=== PATIENT | male | born 1995 | race Caucasian/White ===

== ENCOUNTER 2019-08-28 12:51 | Emergency (ER) | payer BC, SELFPAY ==
[2019-08-28 13:22] VITALS: BP 148/67; PULSE 85; RESP 98; TEMP 36.9; O2SAT 14
--- NOTE | 2019-08-28 13:44 | ED.URI ---
HPI - URI/Sore Throat General Chief Complaint: Upper Respiratory Infection Stated Complaint: Plurisey?? Time Seen by Provider: 08/28/19 13:46 Source: patient and RN notes reviewed Mode of arrival: ambulatory Limitations: no limitations History of Present Illness HPI Narrative: 24-year-old male presents with concern for bilateral soreness to his anterior chest when he deep breathes. He denies shortness of breath, cough, fever, body aches, injury, trauma. Reports history of pleurisy. Reports his work requires a note with everything going for him to return. MD elicited complaint: other (Chest wall pain) Related Data Home Medications Medication Instructions Recorded Confirmed No Home Medications 08/28/19 08/28/19 Allergies Allergy/AdvReac Type Severity Reaction Status Date / Time No Known Allergies Allergy Verified 08/28/19 13:28 Review of Systems Review of Systems: Narrative: CONSTITUTIONAL: Denies malaise, chills, sweats, or fever. EYES: Denies visual changes, redness, or discharge. ENT: Denies rhinorrhea, congestion, sinus pain, otalgia or sore throat. CARDIOVASCULAR: Denies chest pain, palpitations, or edema. RESPIRATORY: Denies cough or dyspnea. Reports chest wall pain with deep breathing GASTROINTESTINAL: Denies abdominal pain, nausea, vomiting, diarrhea SKIN: Denies rash or itching. MUSCULOSKELETAL: Denies back pain, joint pain, or myalgia. NEUROLOGIC: Denies numbness, weakness, or headache. All systems reviewed & are unremarkable except as noted in HPI and below PMFSH Comments At time of signature, agree with nursing past medical, surgical, social and family history. There is no relevant family history pertinent to the presenting complaint Exam Narrative: Exam Narrative: GENERAL: Well-appearing, well-nourished, and in no acute distress. HEAD: Normocephalic EYES: PERRLA, conjunctivae clear ENT: Nares clear, turbinates pink, no rhinorrhea or epistaxis. Mucous membranes moist. TM pearly berg with sharp light reflex bilaterally; no tragal tenderness. Oropharynx without erythema or lesions. Tonsils not enlarged and without exudate. NECK: Supple. No lymphadenopathy. CHEST: No respiratory distress. Clear to auscultation. No bony deformities, no asymmetry. Speaks in full sentences. HEART: Regular rate and rhythm. No murmur heard. SKIN: Warm, dry, no rash. NEURO: Alert and oriented x3. PSYCH: Normal mood and affect Course Course Emergency Course: Patient is aware of diagnosis, understands and agrees to treatment plan. Anticipatory guidance given. Patient agrees to follow-up as directed and is aware of reasons to seek care at the emergency department. Portions of this record may have been created with voice recognition software Vital Signs Vital signs: Vital Signs Temperature 98.5 F 08/28/19 13:22 Pulse Rate 85 08/28/19 13:22 Respiratory Rate 98 H 08/28/19 13:22 Blood Pressure 148/67 H 08/28/19 13:22 Pulse Oximetry 14 L 08/28/19 13:22 Temperature 98.5 F 08/28/19 13:22 Pulse Rate 85 08/28/19 13:22 Respiratory Rate 98 H 08/28/19 13:22 Blood Pressure 148/67 H 08/28/19 13:22 Pulse Oximetry 14 L 08/28/19 13:22 Reviewed. Pt has been instructed to follow up with his primary care provider within the next week regarding his elevated blood pressure today. MDM - URI/Sore Throat MDM Narrative Medical decision making narrative: Differential diagnosis considered: Pleurisy, coronavirus, angina, strep pharyngitis, allergic rhinitis, upper respiratory tract infection, sinusitis, rhinosinusitis, nasopharyngitis. viral pharyngitis, otitis media, otitis externa, pneumonia, bronchitis, viral cough syndrome, viral syndrome, and influenza. Exam findings show no acute concerns or changes; patient is non-toxic appearing and is in no distress. Patient is appropriate for outpatient treatment and follow-up. Critical Care Time Critical Care Time Critical Care Time: No Discharge Plan Discharge
== END 2019-08-28 14:00 | disposition home or self-care (01) ==
PROVIDERS: Emergency Provider Nurse Practitioner
DX: R07.89 Other chest pain (principal)
CPT/HCPCS: 99201; G0463

== ENCOUNTER 2020-10-14 19:28 | Emergency (ER) | payer SELFPAY ==
[2020-10-14 19:35] VITALS: BP 153/85; PULSE 87; RESP 16; TEMP 36.8; O2SAT 99
--- NOTE | 2020-10-14 19:39 | ED.GENADULT ---
HPI - General Adult General Chief complaint: Extremity Problem,Nontraumatic Stated complaint: right ring finger infection Time Seen by Provider: 10/14/20 19:40 Source: patient and RN notes reviewed Mode of arrival: ambulatory Limitations: no limitations History of Present Illness HPI narrative: 25-year-old male presents with concern for paronychia. Reports swelling, redness, tenderness, pain to the tip of the fourth digit of the right hand. Reports symptoms started after he dug out a ingrown fingernail. Reports skin sloughing around the infected area. He denies fever, body aches, chills, sweats. Reports the pain is starting to radiate into the fifth digit. He denies decreased strength, sensation, range of motion in the hand or digits. MD complaint: Paronychia Related Data Home Medications Medication Instructions Recorded Confirmed No Home Medications 08/28/19 10/14/20 Allergies Allergy/AdvReac Type Severity Reaction Status Date / Time No Known Allergies Allergy Verified 10/14/20 19:39 Review of Systems Review of Systems: CONSTITUTIONAL: Denies malaise, chills, sweats, or fever. SKIN: Reports swelling, redness, pain to the tip of the fourth digit of the right hand surrounding the fingernail MUSCULOSKELETAL: Denies muscle skeletal pain, decreased strength, sensation, range of motion, malacia NEUROLOGIC: Denies numbness, weakness All systems reviewed & are unremarkable except as noted in HPI and below PMFSH Comments At time of signature, agree with nursing past medical, surgical, social and family history. There is no relevant family history pertinent to the presenting complaint Exam Narrative: GENERAL: Well-appearing, well-nourished, and in no acute distress. HEAD: Normocephalic, atraumatic. EYES: PERRLA, conjunctivae clear ENT: Mucous membranes moist. NECK: Supple CHEST: Clear to auscultation. No respiratory distress. HEART: Regular rate and rhythm. SKIN: Warm, dry, no rash. Erythema, edema, tenderness, sloughing skin noted surrounding the nailbed of the fourth digit of the right hand consistent with paronychia NEURO: Alert and oriented x3. PSYCH: Normal mood and affect Course Course Emergency Course: Patient is aware of diagnosis, understands and agrees to treatment plan. Anticipatory guidance given. Patient agrees to follow-up as directed and is aware of reasons to seek care at the emergency department. Portions of this record may have been created with voice recognition software Vital Signs Vital signs: Vital Signs Temperature 98.3 F 10/14/20 19:35 Pulse Rate 87 10/14/20 19:35 Respiratory Rate 16 10/14/20 19:35 Blood Pressure 153/85 H 10/14/20 19:35 Pulse Oximetry 99 10/14/20 19:35 Temperature 98.3 F 10/14/20 19:35 Pulse Rate 87 10/14/20 19:35 Respiratory Rate 16 10/14/20 19:35 Blood Pressure 153/85 H 10/14/20 19:35 Pulse Oximetry 99 10/14/20 19:35 Reviewed. Medical Decision Making MDM Narrative Medical decision making narrative: Exam findings show no acute concerns or changes; patient is non-toxic appearing and is in no distress. Patient is appropriate for outpatient treatment and follow-up. Differential Diagnosis Differential Diagnosis: Paronychia, cellulitis, felon, abscess, musculoskeletal injury Vital Signs Vital Signs: Vital Signs Temperature 98.3 F 10/14/20 19:35 Pulse Rate 87 10/14/20 19:35 Respiratory Rate 16 10/14/20 19:35 Blood Pressure 153/85 H 10/14/20 19:35 Pulse Oximetry 99 10/14/20 19:35 Temperature 98.3 F 10/14/20 19:35 Pulse Rate 87 10/14/20 19:35 Respiratory Rate 16 10/14/20 19:35 Blood Pressure 153/85 H 10/14/20 19:35 Pulse Oximetry 99 10/14/20 19:35 Critical Care Time Critical Care Time Critical Care Time: No Discharge Plan Discharge Clinical Impression: Paronychia Patient Disposition: Home, Self-Care Condition: Stable Instructions: Antibiotic Form, Paronychia (ED) Additional
== END 2020-10-14 19:59 | disposition home or self-care (01) ==
PROVIDERS: Emergency Provider Nurse Practitioner
DX: L03.011 Cellulitis of right finger (principal)
CPT/HCPCS: 99213; G0463

== ENCOUNTER 2021-01-05 08:42 | Emergency (ER) | payer SELFPAY ==
--- NOTE | ~2021-01-05 | XR_ITS ---
EXAMINATION: XR hand LT min 3V DATE: 01/05/2021 09:08 INDICATION: Hit in the left hand with a wrench with pain at the base of the first metacarpal TECHNIQUE: Posteroanterior, oblique and lateral views of the left hand were obtained. COMPARISON: None. FINDINGS: Alignment is normal. No fracture. Joint spaces are normal. There is soft tissue gas at the radial asp ect of the wrist and carpus extending into the thenar eminence and the base of the thumb. IMPRESSION: 1. Soft tissue gas at the radial aspect of the hand and wrist. No osseous abnormality. For additional provided history there is a tiny puncture wound in the thenar region and this might account for the gas although the amount of gas although the amount of gas and degree of proximal extension is greater than anticipated for a tiny puncture wound and would correlate clinically for signs of infection as secondary infection and necrotizing fasciitis would be on the differential. Dr. Samaniego discussed th lizet findings with the nurse practitioner Morenita Nino at 9:17 AM. Reviewed, dictated and finalized at location A. [employer] IMPRESSION: 1. Soft tissue gas at the radial aspect of the hand and wrist. No osseous abnor mality. For additional provided history there is a tiny puncture wound in the t henar region and this might account for the gas although the amount of gas alth ough the amount of gas and degree of proximal extension is greater than anticip ated for a tiny puncture wound and would correlate clinically for signs of infe ction as secondary infection and necrotizing fasciitis would be on the differen tial. Dr. Samaniego discussed these findings with the nurse practitioner Morenita kaur at 9:17 AM.
[2021-01-05 08:48] VITALS: BP 127/69; PULSE 63; RESP 20; TEMP 36.9; O2SAT 98
--- NOTE | 2021-01-05 09:02 | ED.UPPEXIN ---
HPI - Extremity Injury (Upper) General Chief Complaint: Extremity Injury, Upper Stated Complaint: Left hand injury Time Seen by Provider: 01/05/21 09:05 Source: patient, RN notes reviewed and old records reviewed Mode of arrival: ambulatory Limitations: no limitations History of Present Illness HPI narrative: 25-year-old male presents to the [facility] with left hand pain. 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 Was using a wrench when it jumped and hit his hand between the wrench and a piece Reports having his tetanus shot approximately 4 years ago when he had stitches Significant swelling noted without increased redness to the base of the thumb both palmar and dorsal aspects. No increased warmth. Pain with range of motion. Small puncture wound noted between fingers 1 and 2. Related Data Home Medications Medication Instructions Recorded Confirmed metformin 500 mg PO BID 01/05/21 01/05/21 Allergies Allergy/AdvReac Type Severity Reaction Status Date / Time No Known Allergies Allergy Verified 01/05/21 09:03 Review of Systems Review of Systems: All systems reviewed & are unremarkable except as noted in HPI and below Constitutional: Constitutional: Reports no additional constitutional complaints, Denies chills and Denies fever(s) Eyes: Eyes: Reports no additional eye complaints ENT: Reports system reviewed and no additional complaints, except as documented Cardiovascular: Cardiovascular: Reports no additional cardiovascular complaints and Denies chest pain Respiratory: Respiratory: Reports no additional respiratory complaints, Denies cough, Denies dyspnea and Denies wheezing Gastrointestinal: Gastrointestinal: Reports no additional gastrointestinal complaints Musculoskeletal: Musculoskeletal: Reports as per HPI Comments: Left hand pain Integumentary/Breasts: Skin/Breast: Reports system reviewed and no additional complaints, except as docu, Denies pruritus, Denies erythema and Denies rash Neurologic: Reports system reviewed and no additional complaints, except as documented Psychiatric: Psychiatric: Reports no additional psychiatric complaints Allergic/Immunologic: Allergic/Immunologic: Reports no additional allergic/immunologic complaints [facility] Past Medical History Medical History Diabetes Surgical History Surgical History (Updated 01/05/21 @ 11:17 by Morenita Nino) No significant past surgical history Social History Social History (Updated 01/05/21 @ 11:17 by Morenita Nino) Living arrangements: with family Occupation/Education: occupation 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 There is no relevant family history pertinent to the patient complaint. Exam Const: General: healthy appearing, no acute distress and alert Orientation/consciousness: patient oriented x3 Limitations: no limitations Neuro: General: patient oriented x3, moves all extremities, no meningeal signs and no focal motor deficits Speech: normal speech Gait exam (Neuro): Normal gait present Extrem: General: normal to inspection Left upper extremity: hand tenderness of the dorsal hand over the 1st metacarpal, of the palm on the radial aspect and of the thumb at the MCP joint Hand/finger images: 1. puncture wound 2. swelling without redness or increased warmth. Course Course Emergency Course: Discharge instructions reviewed with patient, as well as provided in writing per nursing staff. The instructions also include specific and strict return/GO TO THE ER as well as f/u information. All questions have been answered, and the patient deny any further questions with discharge and discharge plan. Concise importance of symptoms changing, redness, fevers, increased pain
== END 2021-01-05 10:05 | disposition home or self-care (01) ==
PROVIDERS: Emergency Provider Nurse Practitioner
DX: S60.222A Contusion of left hand, initial encounter (principal); X58.XXXA Exposure to other specified factors, initial encounter; S61.432A Puncture wound without foreign body of left hand, initial encounter; E11.9 Type 2 diabetes mellitus without complications
CPT/HCPCS: 73130; 99213; G0463

== ENCOUNTER 2021-07-15 17:19 | Emergency (ER) | payer OTHER, SELFPAY ==
[2021-07-15 17:25] VITALS: BP 141/78; PULSE 68; RESP 16; TEMP 37; O2SAT 99
--- NOTE | 2021-07-15 17:29 | ED.EAR ---
HPI - Ear Problem General Chief complaint: Ear Stated complaint: fluid in left ear Time Seen by Provider: 07/15/21 17:30 Source: patient and RN notes reviewed History of Present Illness HPI Narrative: Patient is a 26-year-old male who presents the urgent care with complaints of left ear pain/fluid in the ear. Patient states he woke up with the discomfort this morning and has been taking Tylenol. No other acute complaints. Denies a fever nausea vomiting. Denies of any other upper respiratory complaints. No acute distress noted. Patient aware of the plan of care. Some parts of this dictation were generated by voice recognition software and may contain typographical and/or grammatical inaccuracies. Related Data Home Medications Medication Instructions Recorded Confirmed metformin 500 mg tablet 500 mg PO BID 01/05/21 07/15/21 Allergies Allergy/AdvReac Type Severity Reaction Status Date / Time No Known Allergies Allergy Verified 07/15/21 17:27 Review of Systems Review of Systems: CONSTITUTIONAL: Denies fever, chills, or sweats. EYES: Denies visual changes, redness, or discharge. ENT: Denies rhinorrhea, congestion, sore throat. Reports of left otalgia CARDIOVASCULAR: Denies chest pain, palpitations, or edema. RESPIRATORY: Denies cough or dyspnea. GASTROINTESTINAL: Denies abdominal pain, nausea, vomiting, or diarrhea. GENITOURINARY: Denies dysuria or hematuria. SKIN: Denies rash or itching. MUSCULOSKELETAL: Denies back pain, joint pain, or myalgia. NEUROLOGIC: Denies headache, numbness, or weakness. All other systems reviewed are negative, except as documented in HPI. 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 There is no relevant family history pertinent to the patient complaint. Exam Narrative: GENERAL: This is a well-nourished, well-developed patient, in no apparent distress. HEAD: normocephalic, atraumatic. EYES: PERRL. Sclera clear/white. Vision is grossly intact. EARS: External ears normal, auditory canals clear and without drainage, moderately injected/erythemic left TM with slight effusion. Right TMsnormal without perforation. Hearing grossly intact. NOSE: External nose normal with no obvious nasal discharge, nares without redness, no rhinorrhea. THROAT: Mucous membranes moist, posterior pharynx clear. Moderate postnasal drainage NECK: Neck supple SKIN: warm, intact with no suspicious lesions or rash, good texture and turgor. NEURO: awake, alert, and oriented to person, place and time. There were no obvious focal neurologic abnormalities. EXTREMITIES: No clubbing, cyanosis, or edema. Course Course Level of Care: Express Care Visit Vital Signs Vital signs: Vital Signs Temperature 98.6 F 07/15/21 17:25 Pulse Rate 68 07/15/21 17:25 Respiratory Rate 16 07/15/21 17:25 Blood Pressure 141/78 H 07/15/21 17:25 Pulse Oximetry 99 07/15/21 17:25 Oxygen Delivery Room Air 07/15/21 17:25 Temperature 98.6 F 07/15/21 17:25 Pulse Rate 68 07/15/21 17:25 Respiratory Rate 16 07/15/21 17:25 Blood Pressure 141/78 H 07/15/21 17:25 Pulse Oximetry 99 07/15/21 17:25 Oxygen Delivery Room Air 07/15/21 17:25 Reviewed-patient is informed that they may have pre-hypertension or hypertension based on a blood pressure reading in the department. I recommend the patient call the primary care provider listed on their discharge instructions or a physician of their choice this we
== END 2021-07-15 17:37 | disposition home or self-care (01) ==
PROVIDERS: Emergency Provider Nurse Practitioner Family
DX: H66.92 Otitis media, unspecified, left ear (principal); E11.9 Type 2 diabetes mellitus without complications
CPT/HCPCS: 99213; G0463

== ENCOUNTER 2021-08-08 16:52 | Emergency (ER) | payer OTHER, SELFPAY ==
--- NOTE | ~2021-08-08 | XR_ITS ---
EXAM: XR wrist RT min 3V DATE: 08/08/2021 17:19 HISTORY: USING A SLEDGE HAMMER REPEATEDLY. PAIN X 3 DAYS. . COMPARISON: None available. FINDINGS: Normal mineralization. No fracture or dislocation. No lytic or blastic lesion. Joint space s are maintained. No erosion or periosteal change. Soft tissues within normal limits. IMPRESSION: No acute osseous finding in the right wrist. Reviewed, dictated and finalized at location K.
[2021-08-08 17:00] VITALS: BP 151/73; PULSE 94; RESP 20; TEMP 37.1; O2SAT 98
--- NOTE | 2021-08-08 17:42 | ED.GENADULT ---
HPI - General Adult General Chief complaint: Extremity Injury, Upper Stated complaint: right wrist injury Source: patient Mode of arrival: ambulatory Limitations: no limitations History of Present Illness HPI narrative: Patient presents for evaluation of right wrist pain for the last 3 days. He indicates he was using a homemade sledgehammer for about 45 minutes. He felt a pop in the right wrist. Pain has persisted since that time. Pain is progressively worsening. Originally pain was 4 out of 10 in severity but is no unbearable . No radicular component. No paresthesias. Movement makes pain worse. He is right-hand dominant. No additional complaints or concerns. Related Data Home Medications Medication Instructions Recorded Confirmed metformin 500 mg tablet 500 mg PO BID 01/05/21 08/08/21 Allergies Allergy/AdvReac Type Severity Reaction Status Date / Time No Known Allergies Allergy Verified 08/08/21 17:10 Review of Systems Review of Systems: CONSTITUTIONAL: Denies fever, chills, or sweats. EYES: Denies visual changes, redness, or discharge. ENT: Denies rhinorrhea, congestion, sore throat, or otalgia. CARDIOVASCULAR: Denies chest pain, palpitations, or edema. RESPIRATORY: Denies cough or dyspnea. GASTROINTESTINAL: Denies abdominal pain, nausea, vomiting, or diarrhea. GENITOURINARY: Denies dysuria or hematuria. SKIN: Denies rash or itching. MUSCULOSKELETAL: Reports pain and a bulge in the right wrist. NEUROLOGIC: Denies headache, numbness, dizziness, or weakness. PSYCHIATRIC: Denies anxiety or depression. 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 HEAD: Normocephalic, atraumatic. EYES: PERRLA and EOMI. ENT: Nares clear, no rhinorrhea or epistaxis. Mucous membranes moist. Oropharynx without tonsillar hypertrophy exudate or other lesions. Bilateral TMs pearly berg nonbulging NECK: Supple. No adenopathy or masses. No carotid bruits or JVD CHEST: Clear to auscultation. No respiratory distress. No wheezes rales or rhonchi HEART: Regular rate and rhythm. No murmur heard. Normal peripheral pulses. ABDOMEN: Soft, nontender, nondistended, normal active bowel sounds. EXTREMITIES: Tenderness noted over dorsal aspect of right wrist. There is a prominence overlying distal ulnar. 3/5 hand garment form assembler strength on right. 5/5 hand garment form assembler strength left SKIN: Warm, dry, no rash. NEURO: No focal deficits. Alert and oriented x3. PSYCH: Normal mood and affect. Course Course Emergency Course: This is a 26-year-old male that presented with complaints of pain in the right wrist. Questionable ganglion cyst vs. Negative for fracture. Provided with [place] wrap. Advised he should purchase wrist splint. Follow-up with Ortho this week. He has tolerated tramadol in the past. Will discharge with small quantity. Pt in agreement with plan of care. Level of Care: Express Care Visit Vital Signs Vital signs: Vital Signs Temperature 37.1 C 08/08/21 17:00 Pulse Rate 94 08/08/21 17:00 Respiratory Rate 20 08/08/21 17:00 Blood Pressure 151/73 H 08/08/21 17:00 Pulse Oximetry 98 08/08/21 17:00
== END 2021-08-08 17:54 | disposition home or self-care (01) ==
PROVIDERS: Emergency Provider Nurse Practitioner
DX: S69.91XA Unspecified injury of right wrist, hand and finger(s), initial encounter (principal); X58.XXXA Exposure to other specified factors, initial encounter; E11.9 Type 2 diabetes mellitus without complications
CPT/HCPCS: 73110; 99213; G0463

== ENCOUNTER 2021-10-22 08:51 | Emergency (ER) | payer OTHER, SELFPAY ==
[2021-10-22 08:58] VITALS: BP 145/73; PULSE 75; RESP 14; TEMP 36.8; O2SAT 98
--- NOTE | 2021-10-22 09:01 | ED.URI ---
HPI - URI/Sore Throat General Chief Complaint: Upper Respiratory Infection Stated Complaint: uri Time Seen by Provider: 10/22/21 09:01 Source: patient and RN notes reviewed Mode of arrival: ambulatory Limitations: no limitations History of Present Illness MD elicited complaint: cough Related Data Home Medications Medication Instructions Recorded Confirmed metformin 500 mg tablet 500 mg PO BID 01/05/21 08/08/21 Allergies Allergy/AdvReac Type Severity Reaction Status Date / Time No Known Allergies Allergy Verified 10/22/21 09:01 Review of Systems Review of Systems: CONSTITUTIONAL: Denies malaise, chills, sweats, fever EYES: Denies visual changes, redness, or discharge ENT: Reports rhinorrhea, congestion, Denies sinus pain, otalgia, sore throat CARDIOVASCULAR: Denies chest pain, palpitations, edema RESPIRATORY: Reports cough, post nasal drainage. 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 TM pearly berg with dull light reflex bilaterally; no tragal tenderness. Oropharynx erythematous without lesions or exudate, no drooling, no hoarseness, no trismus, uvula midline. CHEST: Clear to auscultation, breath sounds equal. HEART: Regular rate and rhythm. No murmur heard. SKIN: Warm, dry, no rash. NEURO: Alert and oriented x3. PSYCH: Normal mood and affect Course Course Emergency Course: Patient is aware of diagnosis, understands and agrees to treatment plan. Anticipatory guidance given. Patient agrees to follow-up as directed and is aware of reasons to seek care at the emergency department. Portions of this record may have been created with voice recognition software Level of Care: Express Care Visit Vital Signs Vital signs: reviewed MDM - URI/Sore Throat MDM Narrative Medical decision making narrative: Pt requesting work note. Advised supportive measures and signs/symptoms to go to the ER. Pt is appropriate for outpt treatment and f/u. Differential Diagnosis Differential diagnosis: Likely upper respiratory infection, sinusitis and viral infection Discharge Plan Discharge Clinical Impression: Upper respiratory infection Patient Disposition: Home, Self-Care Condition: Stable Instructions: Upper Respiratory Infection (ED) Additional Instructions: Recommend Flonase spray and Zyrtec (or Claritin/Hailee) over the counter Cough syrup may cause drowsiness; avoid driving or take it at night time. Tylenol 1000mg every 8 hours as needed for pain Symptomatic treatment includes: rest, fluids, and increase humidity of the air at home. Follow up with your primary care provider as needed in 1 week Go to the ER for worsening symptoms or concerns Prescriptions: No Action metformin 500 mg tablet 500 mg PO BID tramadol 50 mg tablet 50 mg PO Q8H PRN (Reason: pain) Qty: 15 0RF Follow-up/Referrals: PHYSICIAN NOT ON STAFF,NONSTAFF [Primary Care Provider] - Stand Alone Forms: Work/School Release IP Time of Dispos
== END 2021-10-22 09:09 | disposition home or self-care (01) ==
PROVIDERS: Emergency Provider Nurse Practitioner Family
DX: J06.9 Acute upper respiratory infection, unspecified (principal); E11.9 Type 2 diabetes mellitus without complications
CPT/HCPCS: 99213; G0463

== ENCOUNTER 2021-12-22 12:25 | Emergency (ER) | payer OTHER, SELFPAY ==
--- NOTE | ~2021-12-22 | XR_ITS ---
EXAMINATION: XR knee RT min 4V DATE: 12/22/2021 12:47 INDICATION: Right knee injury and pain. TECHNIQUE: 4 views of right knee were obtained. COMPARISON: None. FINDINGS: Bone alignment is normal. No fracture. There is mild tricompartmental osteoarthritis. No kn ee joint effusion. IMPRESSION: 1. Mild right knee osteoarthritis. Reviewed, dictated and finalized at location A. UNITY SUPPORT SPECIALIST
[2021-12-22 12:30] VITALS: BP 127/76; PULSE 92; RESP 18; TEMP 36.9; O2SAT 100
--- NOTE | 2021-12-22 12:31 | ED.LOWEXIN ---
HPI - Extremity Injury (Lower) General Chief Complaint: Extremity Injury, Lower Stated Complaint: right knee injury Time Seen by Provider: 12/22/21 12:31 Source: patient and RN notes reviewed History of Present Illness HPI Narrative: Patient is a 26-year-old male who presents to the Urgent Care with complaints of right knee pain and swelling. Patient states that he was working on a car last night, it came off the [place] and fell onto his right knee. Patient states that pain increases with ambulation and weight-bearing. Patient has used ibuprofen and ice. No other acute complaints or injuries. No acute distress noted. Patient aware of the plan of care. Some parts of this dictation were generated by voice recognition software and may contain typographical and/or grammatical inaccuracies. Related Data Home Medications Medication Instructions Recorded Confirmed metformin 500 mg tablet 500 mg PO BID 01/05/21 10/22/21 Allergies Allergy/AdvReac Type Severity Reaction Status Date / Time No Known Allergies Allergy Verified 12/22/21 12:47 Review of Systems Review of Systems: CONSTITUTIONAL: Denies fever, chills, or sweats. EYES: Denies visual changes, redness, or discharge. ENT: Denies rhinorrhea, congestion, sore throat, or otalgia. CARDIOVASCULAR: Denies chest pain, palpitations, or edema. RESPIRATORY: Denies cough or dyspnea. GASTROINTESTINAL: Denies abdominal pain, nausea, vomiting, or diarrhea. GENITOURINARY: Denies dysuria or hematuria. SKIN: Denies rash or itching. MUSCULOSKELETAL: Reports of right knee pain and swelling NEUROLOGIC: Denies headache, numbness, or weakness. All other systems reviewed are negative, except as documented in HPI. 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 There is no relevant family history pertinent to the patient complaint. Exam Narrative: GENERAL: This is a well-nourished, well-developed patient, in no apparent distress. HEAD: normocephalic, atraumatic. EYES: PERRL. Sclera clear/white. Vision is grossly intact. EARS: External ears normal NOSE: External nose normal with no obvious nasal discharge, nares without redness, no rhinorrhea. THROAT: Mucous membranes moist NECK: Neck supple SKIN: warm, intact with no suspicious lesions or rash, good texture and turgor. NEURO: awake, alert, and oriented to person, place and time. There were no obvious focal neurologic abnormalities. EXTREMITIES: mild diffuse right knee swelling and moderate anterior pain without erythema or ecchymosis. Positive strong right pedal pulses results 2 seconds. Range of motion not tested due to pain. Course Course Level of Care: Express Care Visit Vital Signs Vital signs: Vital Signs Temperature 98.4 F 12/22/21 12:30 Pulse Rate 92 12/22/21 12:30 Respiratory Rate 18 12/22/21 12:30 Blood Pressure 127/76 12/22/21 12:30 Pulse Oximetry 100 12/22/21 12:30 Oxygen Delivery Room Air 12/22/21 12:30 Temperature 98.4 F 12/22/21 12:30 Pulse Rate 92 12/22/21 12:30 Respiratory Rate 18 12/22/21 12:30 Blood Pressure 127/76 12/22/21 12:30 Pulse Oxime
--- NOTE | 2021-12-22 12:48 | PC.NURSE ---
PT DECLINED WHEELCHAIR TO RADIOLOGY AND ICE FOR COMFORT
== END 2021-12-22 13:00 | disposition home or self-care (01) ==
PROVIDERS: Emergency Provider Nurse Practitioner Family
DX: S80.01XA Contusion of right knee, initial encounter (principal); W20.8XXA Other cause of strike by thrown, projected or falling object, initial encounter; E11.9 Type 2 diabetes mellitus without complications
CPT/HCPCS: 73564; 99213; G0463

== ENCOUNTER 2022-05-30 14:40 | Emergency (ER) | payer OTHER, SELFPAY ==
[2022-05-30 14:46] VITALS: BP 143/72; PULSE 79; RESP 20; TEMP 36.7; O2SAT 98
--- NOTE | 2022-05-30 14:47 | ED.URI ---
HPI - URI/Sore Throat General Chief Complaint: Upper Respiratory Infection Stated Complaint: Sore Throat/Ear Pain Time Seen by Provider: 05/30/22 14:47 Source: patient and RN notes reviewed History of Present Illness HPI Narrative: Patient is a 27-year-old male who presents to urgent care with complaints of bilateral ear pain and sore throat. Patient states that it started on and he has been taking TheraFlu. Denies any nausea, vomiting or fever. Patient states that he was exposed to strep throat at work. No other acute complaints. No acute distress noted. Patient aware of the plan of care. Some parts of this dictation were generated by voice recognition software and may contain typographical and/or grammatical inaccuracies. Related Data Home Medications Medication Instructions Recorded Confirmed metformin 500 mg tablet 500 mg PO BID 01/05/21 12/22/21 Allergies Allergy/AdvReac Type Severity Reaction Status Date / Time No Known Allergies Allergy Verified 12/22/21 12:47 Review of Systems Review of Systems: CONSTITUTIONAL: Denies fever, chills, or sweats. EYES: Denies visual changes, redness, or discharge. ENT: Denies rhinorrhea, congestion. Reports bilateral otalgia sore throat CARDIOVASCULAR: Denies chest pain, palpitations, or edema. RESPIRATORY: Denies cough or dyspnea. GASTROINTESTINAL: Denies abdominal pain, nausea, vomiting, or diarrhea. GENITOURINARY: Denies dysuria or hematuria. SKIN: Denies rash or itching. MUSCULOSKELETAL: Denies back pain, joint pain, or myalgia. NEUROLOGIC: Denies headache, numbness, or weakness. All other systems reviewed are negative, except as documented in HPI. 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 There is no relevant family history pertinent to the patient complaint. Exam Narrative: GENERAL: This is a well-nourished, well-developed patient, in no apparent distress. HEAD: normocephalic, atraumatic. EYES: PERRL. Sclera clear/white. Vision is grossly intact. EARS: External ears normal, auditory canals clear and without drainage, TMs normal without perforation. Hearing grossly intact. NOSE: External nose normal with no obvious nasal discharge, nares without redness, clear rhinorrhea. THROAT: Mucous membranes moist, mild erythema posterior pharynx without exudate or ulceration. Moderate postnasal drainage NECK: Neck supple, non-tender without lymphadenopathy RESPIRATORY: Clear to auscultation. Breath sounds equal bilaterally. No wheezes, rales, or rhonchi. SKIN: warm, intact with no suspicious lesions or rash, good texture and turgor. NEURO: awake, alert, and oriented to person, place and time. There were no obvious focal neurologic abnormalities. EXTREMITIES: No clubbing, cyanosis, or edema. Course Course Level of Care: Express Care Visit Vital Signs Vital signs: Vital Signs Temperature 98.0 F 05/30/22 14:46 Pulse Rate 79 05/30/22 14:46 Respiratory Rate 20 05/30/22 14:46 Blood Pressure 143/72 H 05/30/22 14:46 Pulse Oximetry 98 05/30/22 14:46 Oxyge
== END 2022-05-30 15:22 | disposition home or self-care (01) ==
PROVIDERS: Emergency Provider Nurse Practitioner Family
DX: J02.9 Acute pharyngitis, unspecified (principal); E11.9 Type 2 diabetes mellitus without complications
CPT/HCPCS: 87081; 87880; 99213; G0463

== ENCOUNTER 2022-07-26 12:56 | Emergency (ER) | payer OTHER, SELFPAY ==
[2022-07-26 13:06] VITALS: BP 141/73; PULSE 71; RESP 20; TEMP 37.3; O2SAT 98
--- NOTE | 2022-07-26 13:23 | ED.URI ---
HPI - URI/Sore Throat General Chief Complaint: Upper Respiratory Infection Stated Complaint: has cold, ear pain, fever Time Seen by Provider: 07/26/22 13:04 Source: patient and RN notes reviewed History of Present Illness HPI Narrative: Patient is a 27-year-old male who presents to urgent care with complaints of sinus tenderness, drainage, ear pain and cough. Patient states that all symptoms started on Monday with the exception of the cough that started yesterday. Patient also reports of a low-grade fever yesterday. Patient has been on Mucinex. No other acute complaints. No acute distress noted. Patient aware of the plan of care. Some parts of this dictation were generated by voice recognition software and may contain typographical and/or grammatical inaccuracies. Related Data Allergies Allergy/AdvReac Type Severity Reaction Status Date / Time No Known Allergies Allergy Verified 07/26/22 13:15 Review of Systems Review of Systems: CONSTITUTIONAL: Reports of fever EYES: Denies visual changes, redness, or discharge. ENT: Reports rhinorrhea, bilateral otalgia, postnasal drainage CARDIOVASCULAR: Denies chest pain, palpitations, or edema. RESPIRATORY: Reports of cough GASTROINTESTINAL: Denies abdominal pain, nausea, vomiting, or diarrhea. GENITOURINARY: Denies dysuria or hematuria. SKIN: Denies rash or itching. MUSCULOSKELETAL: Denies back pain, joint pain, or myalgia. NEUROLOGIC: Denies headache, numbness, or weakness. All other systems reviewed are negative, except as documented in HPI. 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 There is no relevant family history pertinent to the patient complaint. Exam Narrative: GENERAL: This is a well-nourished, well-developed patient, in no apparent distress. HEAD: normocephalic, atraumatic. EYES: PERRL. Sclera clear/white. Vision is grossly intact. EARS: External ears normal, auditory canals clear and without drainage, moderate erythema with mild effusion to the right TM. Bilateral eustachian tube dysfunction.. Hearing grossly intact. NOSE: External nose normal with no obvious nasal discharge, nares without redness, no rhinorrhea. THROAT: Mucous membranes moist, mild erythema in the posterior oropharynx with postnasal drainage NECK: Neck supple, non-tender without lymphadenopathy RESPIRATORY: Clear to auscultation. Breath sounds equal bilaterally. No wheezes, rales, or rhonchi. SKIN: warm, intact with no suspicious lesions or rash, good texture and turgor. NEURO: awake, alert, and oriented to person, place and time. There were no obvious focal neurologic abnormalities. EXTREMITIES: No clubbing, cyanosis, or edema. Course Course Level of Care: Express Care Visit Vital Signs Vital signs: Vital Signs Temperature 99.1 F 07/26/22 13:06 Pulse Rate 71 07/26/22 13:06 Respiratory Rate 20 07/26/22 13:06 Blood Pressure 141/73 H 07/26/22 13:06 Pulse Oximetry 98 07/26/22 13:06 Oxygen Delivery Room Air 07/26/22 13:06 Temperature 99.1 F 07/26/22 13:06 P
== END 2022-07-26 13:41 | disposition home or self-care (01) ==
PROVIDERS: Emergency Provider Nurse Practitioner Family
DX: H67.1 Otitis media in diseases classified elsewhere, right ear (principal); E11.9 Type 2 diabetes mellitus without complications
CPT/HCPCS: 99213; G0463

== ENCOUNTER 2023-02-02 08:50 | Emergency (ER) | payer OTHER, SELFPAY ==
--- NOTE | ~2023-02-02 | XR_ITS ---
EXAMINATION: XR ribs RT 2V INDICATION: Right-sided chest pain TECHNIQUE: 3 views of the right ribs were obtained. COMPARISON: None. FINDINGS: There is a possible nondisplaced anterolateral fracture of the right ninth rib. An age-inde terminate posterior fracture of the right 12th rib is noted. The right lung is clear. No pneumothorax is identified. There is no pleural effusion. IMPRESSION: 1. Possible nondisplaced anterolateral fracture of the right ninth rib and age indeterminate posterio r fracture of the right 12th rib. Reviewed, dictated and finalized at location L. GRATED PEST MANAGEMENT TECHNICIAN IMPRESSION: 1. Possible nondisplaced anterolateral fracture of the right ninth rib and age indeterminate posterior fracture of the right 12th rib.
--- NOTE | ~2023-02-02 | XR_ITS ---
EXAMINATION: XR wrist RT min 3V DATE: 02/02/2023 09:26 INDICATION: Right wrist pain post fall onto outstretched arm TECHNIQUE: Posteroanterior, oblique and lateral views of the right wrist were obtained. COMPARISON: 08/08/2021 FINDINGS: Alignment is normal. No acute fracture. In addition to the typical palmar sided sesamoid bones at the first metatarsophalangeal joint there is an additional small chronic ossification at the dorsal/radi al side of the joint space which could represent additional sesamoid bone, degenerative loose body or sequela of old trauma. Joint spaces are normal. Soft tissues are unremarkable. IMPRESSION: 1. No acute osseous abnormality. Reviewed, dictated and finalized at location A. ETING CONTENT SPECIALIST
[2023-02-02 09:06] VITALS: BP 157/83; PULSE 84; RESP 18; TEMP 36.5; O2SAT 99
--- NOTE | 2023-02-02 09:39 | ED.GENADULT ---
HPI - General Adult General Chief complaint: Fall Stated complaint: right wrist/lower back injury Source: patient Mode of arrival: ambulatory Limitations: no limitations History of Present Illness HPI narrative: 27 y/o male presented for c/o pain to right ribs and right wrist after falling at work yesterday morning. 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 Continued to work throughout the day yesterday, but pain worsened. He woke this morning unable tolerate moving the wrist. Reports rib pain with any twisting movements. Denies hemoptysis, sob, wheezing. Denies hand bruising/swelling, deformity, numbness, tingling or weakness. Hx fractured wrist. Taking ibuprofen. Related Data Home Medications Medication Instructions Recorded Confirmed atorvastatin 10 mg tablet 10 mg PO DAILY 02/02/23 02/02/23 metformin 500 mg tablet,extended 500 mg PO QAM 02/02/23 02/02/23 release 24 hr Allergies Allergy/AdvReac Type Severity Reaction Status Date / Time No Known Allergies Allergy Verified 02/02/23 09:23 Review of Systems Review of Systems: CONSTITUTIONAL: Denies body aches, fever, chills EYES: Denies visual changes ENT: Denies rhinorrhea, congestion CARDIOVASCULAR: Denies chest pain, palpitations, or edema. RESPIRATORY: Denies cough or dyspnea. GASTROINTESTINAL: Denies abdominal pain, nausea, vomiting, or diarrhea. SKIN: Denies rash, itching, or wounds. MUSCULOSKELETAL:Reports right rib pain, right wrist pain NEUROLOGIC: Denies headache, numbness, tingling, or weakness. 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 Please see nursing chart for further information. There is no relevant family history pertinent to the presenting complaint Exam Narrative: GENERAL: Well-appearing NECK: Supple. Full ROM. CHEST: Speaks in full sentences. No respiratory distress. HEART: Regular rate and rhythm. Normal and equal peripheral pulses. EXTREMITIES: Right hand has decreased range of motion with flexion/extension/rotation, decreased fuel conversion technician strength due to reported pain with movement. No edema or ecchymosis, No point tenderness. right hand has normal sensation, normal No open wounds, or obvious deformity; alignment normal, pulse palpable and equal bilaterally, skin warm, dry, pink. Capillary refill less than 3 seconds. MUSC: Right mid rib tenderness with palpation lateral and posterior. SKIN: Warm, dry, no rash or bruising NEURO: Alert and oriented x3. PSYCH: Normal mood and affect Back/Spine/Pelvis: Back/spine/pelvis image: 1. area of right rib tenderness Course Course Emergency Course: Patient is aware of diagnosis, understands and agrees to treatment plan. Anticipatory guidance given. Patient agrees to follow-up as directed and is aware of reasons to seek care at the emergency department. Portions of this record may have been created with voice recognition software Level of Care: E
== END 2023-02-02 10:27 | disposition home or self-care (01) ==
PROVIDERS: Emergency Provider Nurse Practitioner Family
DX: S63.501A Unspecified sprain of right wrist, initial encounter (principal); R07.81 Pleurodynia; E11.9 Type 2 diabetes mellitus without complications; Z79.84 Long term (current) use of oral hypoglycemic drugs; Z79.899 Other long term (current) drug therapy; W01.0XXA Fall on same level from slipping, tripping and stumbling without subsequent striking against object, initial encounter; Y99.0 Civilian activity done for income or pay
CPT/HCPCS: 71100; 73110; 99214; G0463

== ENCOUNTER 2023-04-03 12:24 | Emergency (ER) | payer OTHER, SELFPAY ==
[2023-04-03 12:39] VITALS: BP 137/70; PULSE 80; RESP 16; TEMP 36.5; O2SAT 99
--- NOTE | 2023-04-03 13:34 | ED.URI ---
HPI - URI/Sore Throat General Chief Complaint: Upper Respiratory Infection Stated Complaint: Ear Pain/Cough Time Seen by Provider: 04/03/23 13:34 Source: patient Mode of arrival: ambulatory Limitations: no limitations History of Present Illness HPI Narrative: 28-year-old male presented for complaint of bilateral ear pressure and muffled hearing along with nasal congestion for about 4 days. He has been taking [id number] cough and cold medicine without relief. Endorses a history of ear infections. Denies tinnitus, dizziness, nausea, vomiting, fevers or chills. Related Data Home Medications Medication Instructions Recorded Confirmed atorvastatin 10 mg tablet 10 mg PO DAILY 02/02/23 02/02/23 metformin 500 mg tablet,extended 500 mg PO QAM 02/02/23 02/02/23 release 24 hr Allergies Allergy/AdvReac Type Severity Reaction Status Date / Time No Known Allergies Allergy Verified 02/02/23 09:23 Review of Systems Review of Systems: CONSTITUTIONAL: Denies malaise, chills, or fever. EYES: Denies visual changes, redness, or discharge. ENT: Denies sinus pain, and sore throat. Reports ear pain rhinorrhea, congestion, CARDIOVASCULAR: Denies chest pain, palpitations, or edema. RESPIRATORY: Denies cough or dyspnea. GASTROINTESTINAL: Denies abdominal pain, nausea, vomiting, diarrhea SKIN: Denies rash or itching. MUSCULOSKELETAL: Denies myalgia. NEUROLOGIC: Denies headache. 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 There is no relevant family history pertinent to the presenting complaint Exam Narrative: GENERAL: Well-appearing, well-nourished, and in no acute distress. EYES: PERRLA, conjunctivae clear ENT: Nares clear. Mucous membranes moist. TMs erythematous, bulging and intact; canals not erythematous, No drainage; no tragal tenderness. Oropharynx not erythematous without lesions. Tonsils not enlarged and without exudate, no drooling, no hoarseness, no trismus, uvula midline. NECK: Supple. No lymphadenopathy CHEST: Clear to auscultation, breath sounds equal. No wheezing, rhonchi, rales, or stridor. No respiratory distress, speaks in full sentences. HEART: Regular rate and rhythm. No murmur heard. SKIN: Warm, dry, no rash. NEURO: Alert and oriented x3. PSYCH: Normal mood and affect Course Course Emergency Course: Patient is aware of diagnosis, understands and agrees to treatment plan. Anticipatory guidance given. Patient agrees to follow-up as directed and is aware of reasons to seek care at the emergency department. Portions of this record may have been created with voice recognition software Level of Care: Express Care Visit Vital Signs Vital signs: Vital Signs Temperature 97.7 F 04/03/23 12:39 Pulse Rate 80 04/03/23 12:39 Respiratory Rate 16 04/03/23 12:39 Blood Pressure 137/70 04/03/23 12:39 Pulse Oximetry 99 04/03/23 12:39 Oxygen Delivery Room Air 04/03/23 12:39 Temperature 97.7 F 04/03/23 12:39 Pulse Rate 80 04/03/23 12:39
== END 2023-04-03 13:46 | disposition home or self-care (01) ==
PROVIDERS: Emergency Provider Nurse Practitioner Family
DX: H66.93 Otitis media, unspecified, bilateral (principal); E11.9 Type 2 diabetes mellitus without complications; Z79.84 Long term (current) use of oral hypoglycemic drugs
CPT/HCPCS: 99213; G0463

== ENCOUNTER 2023-04-26 16:34 | Emergency (ER) | payer OTHER, SELFPAY ==
[2023-04-26 16:39] VITALS: BP 145/75; PULSE 100; RESP 18; TEMP 37.2; O2SAT 98
--- NOTE | 2023-04-26 17:36 | ED.URI ---
HPI - URI/Sore Throat General Chief Complaint: Upper Respiratory Infection Stated Complaint: upper respiratory Time Seen by Provider: 04/26/23 17:30 Source: patient, RN notes reviewed and old records reviewed Mode of arrival: ambulatory Limitations: no limitations History of Present Illness HPI Narrative: 28 year old male who presents to [facility] care with complaints of cough,headache, body aches, runny nose, fever and fatigue for the past 4 days. Patient reports that his symptoms started on Monday with fever and cough and did call off work Monday due to illness.He states he worked Monday and went to work today but boss sent him home and told him to get checked out. Patient reports no sore throat and states that his headache is gone today. Patient reports no known ill contacts. He reports that he has been taking Robitussin, NyQuil and Theraflu for his symptoms. MD elicited complaint: cough and sore throat Onset (ago): day(s) (4) Pain scale (0-10): 3 Able to tolerate fluids by mouth: Yes Treatments prior to arrival: other (NyQuil,Robitussin , theraflu) Related Data Home Medications Medication Instructions Recorded Confirmed atorvastatin 10 mg tablet 10 mg PO DAILY 02/02/23 04/26/23 Allergies Allergy/AdvReac Type Severity Reaction Status Date / Time No Known Allergies Allergy Verified 04/26/23 17:02 Review of Systems Review of Systems: CONSTITUTIONAL: reports malaise, chills, sweats, or fever. EYES: Denies visual changes, redness, or discharge. ENT: Reports rhinorrhea, congestion, sinus pain, no otalgia and sore throat. CARDIOVASCULAR: Denies chest pain, palpitations, or edema. RESPIRATORY: Reports cough.? Denies dyspnea. GASTROINTESTINAL: Denies abdominal pain, nausea, vomiting, diarrhea SKIN: Denies rash or itching. MUSCULOSKELETAL: Reports myalgia. NEUROLOGIC: Reports headache. 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 There is no relevant family history pertinent to the presenting complaint Exam Narrative: GENERAL: Well-appearing, well-nourished, obese and in no acute distress. HEAD: Normocephalic EYES: PERRLA, conjunctivae clear ENT: Nares clear, turbinates edematous and erythematous, clear discharge. Mucous membranes moist. TM pearly berg with dull light reflex bilaterally; no tragal tenderness. Oropharynx erythematous without lesions. Tonsils not enlarged and without exudate, no drooling, no hoarseness, no trismus, uvula midline. post nasal drainage NECK: Supple. No lymphadenopathy CHEST: Clear to auscultation, breath sounds equal. No wheezing, rhonchi, rales, or stridor. No respiratory distress, speaks in full sentences.cough SAO2 98% on room air HEART: Regular rate and rhythm. No murmur heard. SKIN: Warm, dry, no rash. NEURO: Alert and oriented x3. PSYCH: Normal mood and affect Course Course Emergency Course: Patient is aware of diagnosis, understands and agrees to treatment plan.? Anticipatory guidance given.? Patie
== END 2023-04-26 17:50 | disposition home or self-care (01) ==
PROVIDERS: Emergency Provider Registered Nurse
DX: J10.1 Influenza due to other identified influenza virus with other respiratory manifestations (principal); Z20.822 Contact with and (suspected) exposure to COVID-19; E11.9 Type 2 diabetes mellitus without complications; E78.00 Pure hypercholesterolemia, unspecified
CPT/HCPCS: 87426; 87804; 99213; G0463

== ENCOUNTER 2023-08-03 18:22 | Emergency (ER) | payer OTHER, SELFPAY ==
[2023-08-03 18:26] VITALS: BP 129/73; PULSE 88; RESP 20; TEMP 37.2; O2SAT 97
--- NOTE | 2023-08-03 19:01 | ED.EAR ---
HPI - Ear Problem General Chief complaint: Ear Stated complaint: Ear/throat History of Present Illness [facility] Narrative: Pt is a 28 y/o male, presents to with 1.5 week hx of otalgia bilaterally, worse on the left, now with muffled hearing. He denies trauma or fevers. He has no other URI symptoms. OTC cold medications provide little relief, prompting his visit. Related Data Allergies Allergy/AdvReac Type Severity Reaction Status Date / Time No Known Allergies Allergy Verified 04/26/23 17:02 Review of Systems ENT: Comments: refer to [facility] Past Medical History Medical History (Updated 08/03/23 @ 19:07 by RICARDO Jacobs) Diabetes Elevated cholesterol Wrist pain Surgical History Surgical History (Updated 04/26/23 @ 18:15 by Concetta Cornejo NP) H/O wrist surgery right Family History Family History Mother Brain cancer Social History Social History Alcohol intake: current Alcohol use details: social Substance use: never Living arrangements: with family Occupation/Education: occupation 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 Gender identity (if verbalized by the patient): Male Sexual Orientation (if Verbalized by the Patient): Straight or Heterosexual Spiritual care concerns: No Exam Const: General: cooperative, healthy appearing and comfortable Nutritional Appearance: obese Orientation/consciousness: oriented to person Limitations: no limitations HENMT: Head: normal to inspection Ears: other (bilateral TM erythema with effusion, Right TM is bulging, no perforation) Face/Nose/Sinus: Normal external nose present and Normal nares present Face and sinus: normal facial exam and sinuses nontender Mouth: Yes Normal oral and palatal mucosa present Teeth and gingiva: dentition normal Throat: posterior oropharynx normal Eyes: General: appearance normal, both eyes and all related structures Neck: Neck: normal visual inspection, full ROM and no lymphadenopathy Thyroid: thyroid normal Lymphatic: no lymphadenopathy noted Chest: Chest palpation & inspection: normal inspection of the chest Resp: Effort & Inspection: normal respiratory effort Auscultation: clear to auscultation bilaterally Percussion: percussion normal Cardio: Palpation: normal PMI Rate: regular rate Rhythm: regular rhythm Heart sounds: S1 normal heart sound present and S2 normal heart sound present Skin: General skin exam: normal color and no rashes or lesions noted Lesions: no lesions Rashes: no rashes Trauma: no lacerations or abrasions Neuro: General: oriented to person, oriented to place, oriented to time and patient oriented x3 Cranial nerves: Yes CN's II-XII intact bilaterally Cognition (Neuro): normal cognition Speech: normal speech Extrem: General: normal to inspection Course Course Emergency Course: oral abx, oral steroids, OTC antihistamines, FU with PCP for ear check in 3 days or return here if not improving, May consider ENT referral at that time. Pt is agreeable Level of Care: Express Care Visit ([id number]) Vital Signs Vital signs: Vital Signs Temperature 37.2 C 08/03/23 18:26 Pulse Rate 88 08/03/23 18:26 Respiratory Rate 20 08/03/23 18:26 Blood Pressure 129/73 08/03/23 18:26 Pulse Oximetry 97 08/03/23 18:26 Oxygen Delivery Room Air 08/03/23 18:26 Temperature 37.2 C 08/03/23 18:26 Pulse Rate 88 08/03/23 18:26 Respiratory Rate 20 08/03/23 18:26 Blood Pressure 129/73 08/03/23 18:26 Pulse Oximetry 97 08/03/23 18:26 Oxygen Delivery Room Air 08/03/23 18:26 Medical Decision Making MDM Narrative Medical decision making narrative: Augmentin, Prednisone, FU in 3 days Differential Diagnosis Differential Diagnosis: AOM, OTE, serous OM Vital Signs Vital Signs: Vital Signs Temperature 37.2 C 07/15
== END 2023-08-03 19:11 | disposition home or self-care (01) ==
PROVIDERS: Emergency Provider Nurse Practitioner Family
DX: H66.003 Acute suppurative otitis media without spontaneous rupture of ear drum, bilateral (principal); E11.9 Type 2 diabetes mellitus without complications; E78.00 Pure hypercholesterolemia, unspecified
CPT/HCPCS: 99213; G0463

== ENCOUNTER 2023-09-25 16:45 | Emergency (ER) | payer BC, SELFPAY ==
[2023-09-25 16:52] VITALS: BP 119/76; PULSE 83; RESP 20; TEMP 37.3; O2SAT 98
--- NOTE | 2023-09-25 17:15 | ED.EAR ---
HPI - Ear Problem General Chief complaint: Ear Stated complaint: Right Ear Pain Time Seen by Provider: 09/25/23 17:15 Source: patient, RN notes reviewed and old records reviewed Mode of arrival: ambulatory Limitations: no limitations History of Present Illness HPI Narrative: 28-year-old male to Express Care for complaint of right ear discomfort for 5 days. Patient states that pain is increasing and now outer ear is acutely tender to touch. Patient has attempted to treat at home with yeen-fir-farmrgs medications. Patient denies fever, sore throat, headache, changes in hearing, cough, allergies, pertinent medical history. Patient able to tolerate fluids by mouth. Respirations even nonlabored. Patient in no acute distress. Related Data Allergies Allergy/AdvReac Type Severity Reaction Status Date / Time No Known Allergies Allergy Verified 09/25/23 17:00 Review of Systems Review of Systems: All systems reviewed & are unremarkable except as noted in HPI and below Constitutional: Constitutional: Reports no additional constitutional complaints Eyes: Eyes: Reports no additional eye complaints ENT: Reports as per HPI and Reports otalgia ( Right) Cardiovascular: Cardiovascular: Reports no additional cardiovascular complaints, Denies chest pain and Denies dyspnea Respiratory: Respiratory: Reports no additional respiratory complaints, Denies cough and Denies dyspnea Musculoskeletal: Musculoskeletal: Reports no additional musculoskeletal complaints Neurologic: Reports system reviewed and no additional complaints, except as documented Psychiatric: Psychiatric: Reports no additional psychiatric complaints PMFSH Past Medical History Medical History Diabetes Elevated cholesterol Wrist pain Surgical History Surgical History H/O wrist surgery right Family History Family History Mother Brain cancer Social History Social History Alcohol intake: current Alcohol use details: social Substance use: never Living arrangements: with family Occupation/Education: occupation 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 There is no relevant family history pertinent to the patient complaint. Exam Const: General: cooperative, healthy appearing, comfortable, no acute distress, alert and well nourished Nutritional Appearance: well nourished Orientation/consciousness: patient oriented x3 Limitations: no limitations HENMT: Head: normal to inspection Ears: hearing grossly normal bilaterally, Abnormal EAC present erythema on the right and EAC tenderness on the right and TM abnormal bulging on the right, dull on the right, erythematous on the right, with fluid behind the TM on the right and with loss of landmarks on the right Face/Nose/Sinus: Normal external nose present, Normal nares present, normal facial exam, No erythema and No edema Face and sinus: normal facial exam, no erythema and no edema Mouth: Yes Normal oral and palatal mucosa present Eyes: General: appearance normal, both eyes and all related structures Neck: Neck: normal visual inspection, full ROM and no meningeal signs Chest: Chest palpation & inspection: normal inspection of the chest Resp: Effort & Inspection: normal respiratory effort and able to speak in complete sentences Auscultation: clear to auscultation bilaterally Cardio: Jugular venous distension: no JVD Rate: regular rate Rhythm: regular rhythm
== END 2023-09-25 17:25 | disposition home or self-care (01) ==
PROVIDERS: Emergency Provider Nurse Practitioner Family
DX: H66.91 Otitis media, unspecified, right ear (principal); E11.9 Type 2 diabetes mellitus without complications; E78.00 Pure hypercholesterolemia, unspecified
CPT/HCPCS: 99213; G0463

== ENCOUNTER 2023-11-27 10:29 | Emergency (ER) | payer OTHER, SELFPAY ==
--- NOTE | ~2023-11-27 | XR_ITS ---
[id number] Ordering provider: Concetta Cornejo NP History: . pain left frontal and lateral rib area . Comparison: None. FINDINGS: BONES: Highly suggestive fracture in the in the left 10th rib is Demonstrated anteriorly.. LEFT LUNG: No effusions or infiltrates. No pneumothorax. SOFT TISSUES: Normal. IMPRESSION: Highly suggestive fracture of the left 10th rib anteriorly. Clinical correlation and follow-up advise d. Reviewed, dictated and finalized at location A. IMPRESSION: Highly suggestive fracture of the left 10th rib anteriorly. Clinical correlatio n and follow-up advised.
--- NOTE | ~2023-11-27 | XR_ITS ---
Thoracic spine: Clinical Indication: Back pain AP and lateral views were performed. There are minimal chronic wedging deformities of T7, T8, T9, and T10, and T11. There are mild degener ative disc changes at the lower thoracic spine. There is moderate to advanced degenerative change at the mid thoracic spine. Paravertebral soft tissues appear normal. Impression: Mild chronic compression deformities with moderate degenerative spondylitic changes, as above. Findin gs could reflect developing Scheuermann's disease, though no pronounced kyphosis present. Reviewed, dictated and finalized at location M. Impression: Mild chronic compression deformities with moderate degenerative spondylitic mykel nges, as above. Findings could reflect developing Scheuermann's disease, though no pronounced kyphosis present.
[2023-11-27 10:36] VITALS: BP 130/69; PULSE 87; RESP 20; TEMP 36.2; O2SAT 97
--- NOTE | 2023-11-27 11:18 | ED.GENADULT ---
HPI - General Adult General Chief complaint: Chest Pain Stated complaint: Weird pain lower left chest Time Seen by Provider: 11/27/23 11:00 Source: patient, RN notes reviewed and old records reviewed Mode of arrival: ambulatory Limitations: no limitations History of Present Illness HPI narrative: 28 year old male who presents to [facility] care with complaints of pain to the frontal and lateral left rib area and also discomfort of the left upper thoracic back area since Monday morning. Patient reports that he did put a transmission in on Monday at work but he did come home and do some work around the house that evening is unaware of any specific injury which caused his pain. Patient denies any chest pain,shortness of breath or any radiation of pain down his left arm. Patient does reports some soreness in his left upper back area to his posterior shoulder also MD complaint: pain to frontal and lateral left lower rib area, left posterior upper back Onset (ago): day(s) (3) Severity: moderate Quality: aching Exacerbating factors: movement Treatments prior to arrival: NSAID Related Data Allergies Allergy/AdvReac Type Severity Reaction Status Date / Time No Known Allergies Allergy Verified 11/27/23 11:14 Review of Systems Review of Systems: CONSTITUTIONAL: Denies fever, chills, or sweats. EYES: Denies visual changes, redness, or discharge. ENT: Denies rhinorrhea, congestion, sore throat, or otalgia. CARDIOVASCULAR: Denies chest pain, palpitations, or edema, reports pain to left lower and lateral rib area. RESPIRATORY: Denies cough or dyspnea. GASTROINTESTINAL: Denies abdominal pain, nausea, vomiting, or diarrhea. GENITOURINARY: Denies dysuria or hematuria. SKIN: Denies rash or itching. MUSCULOSKELETAL: Report left thoracic back pain, joint pain, or myalgia. NEUROLOGIC: Denies headache, numbness, or weakness. PSYCHIATRIC: Denies anxiety or depression. 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 There is no relevant family history pertinent to the presenting complaint Exam Narrative: GENERAL: Well-appearing, well-nourished,obese, and in no acute distress. HEAD: Normocephalic, atraumatic. EYES: PERRLA and EOMI. ENT: Nares clear, no rhinorrhea or epistaxis. Mucous membranes moist. NECK: Supple.no lymphadenopathy, full ROM neck CHEST: Clear to auscultation. No respiratory distress.SAO2 97% on room air, left anterior and lateral rib pain HEART: Regular rate and rhythm. No murmur heard. Normal peripheral pulses. ABDOMEN: Soft, nontender, nondistended, normal active bowel sounds. EXTREMITIES: Normal range of motion. No edema. Pain to left thoracic back region radiating to posterior shoulder, reports no tingling or numbness to left arm some increased discomfort with shoulder movement. SKIN: Warm, dry, no rash. NEURO: No focal deficits. Alert and oriented x3. Course Course Emergency Course: Patient is aware of diagnosis, understands and a
== END 2023-11-27 13:02 | disposition home or self-care (01) ==
PROVIDERS: Emergency Provider Registered Nurse
DX: S22.32XA Fracture of one rib, left side, initial encounter for closed fracture (principal); S46.812A Strain of other muscles, fascia and tendons at shoulder and upper arm level, left arm, initial encounter; X58.XXXA Exposure to other specified factors, initial encounter; E11.9 Type 2 diabetes mellitus without complications
CPT/HCPCS: 71101; 72072; 99214; G0463

== ENCOUNTER 2024-01-09 14:21 | Emergency (ER) | payer BC, OTHER, SELFPAY ==
[2024-01-09 14:26] VITALS: BP 131/85; PULSE 92; RESP 20; TEMP 36.3; O2SAT 97
--- NOTE | 2024-01-09 15:03 | ED.EAR ---
HPI - Ear Problem General Chief complaint: Ear Stated complaint: Rt Ear clog Time Seen by Provider: 01/09/24 15:04 Source: patient, RN notes reviewed and old records reviewed Mode of arrival: ambulatory Limitations: no limitations History of Present Illness HPI Narrative: 28-year-old male to Express Care with complaint of right ear fullness, stating it feels plugged up and scratchy throat for 2 days. Patient endorses history of chronic bilateral ear issues. States he is slated for surgery after the new year. Patient denies fever, shortness of breath, allergies. Patient able to tolerate fluids by mouth. Patient resting comfortably in exam room in no acute distress. Respirations even and nonlabored. Related Data Allergies Allergy/AdvReac Type Severity Reaction Status Date / Time No Known Allergies Allergy Verified 11/27/23 11:14 Review of Systems Review of Systems: All systems reviewed & are unremarkable except as noted in HPI and below Constitutional: Constitutional: Reports no additional constitutional complaints Eyes: Eyes: Reports no additional eye complaints ENT: Reports as per HPI, Reports otalgia ( Right) and Reports sore throat ( scratchy ) Cardiovascular: Cardiovascular: Reports no additional cardiovascular complaints, Denies chest pain and Denies dyspnea Respiratory: Respiratory: Reports no additional respiratory complaints, Denies cough and Denies dyspnea Musculoskeletal: Musculoskeletal: Reports no additional musculoskeletal complaints Neurologic: Reports system reviewed and no additional complaints, except as documented Psychiatric: Psychiatric: Reports no additional psychiatric complaints PMFSH Past Medical History Medical History Diabetes Ear infection Elevated cholesterol Wrist pain Surgical History Surgical History H/O wrist surgery right Family History Family History Mother Brain cancer Social History Social History Smoking status: Never smoker Alcohol intake: current Alcohol use details: social Substance use: never Living arrangements: with family Occupation/Education: occupation 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 There is no relevant family history pertinent to the patient complaint. Exam Const: General: cooperative, comfortable, no acute distress, alert and well nourished Nutritional Appearance: well nourished Orientation/consciousness: patient oriented x3 Limitations: no limitations HENMT: Head: normal to inspection Ears: external ears normal, Abnormal EAC present EAC tenderness on the right and TM abnormal erythematous on the right, with fluid behind the TM on the right and with loss of landmarks on the right Face/Nose/Sinus: Normal external nose present, Normal nares present, normal facial exam, No erythema and No edema Face and sinus: normal facial exam, no erythema and no edema Mouth: Yes Normal oral and palatal mucosa present Throat: posterior oropharynx abnormal erythema and postnasal drainage Eyes: General: appearance normal, both eyes and all related structures Neck: Neck: normal visual inspection, full ROM and no meningeal signs Lymphatic: no lymphadenopathy noted and no lymphedema noted Chest: Chest palpation & inspection: normal inspection of the chest Resp: Effort & Inspection: normal respiratory effort and able to speak in complete sentences Auscultation: clear to auscultation bilaterally Cardio: Jugular venous distension: no JVD Rate: regular rate Rhythm: regular rhythm Back/Spine/Pelvis: Cervical Spine: cervical ROM normal Skin: General skin exam: normal color, no rashes or lesions noted and turgor normal Neuro: General: patient oriented x3, gait normal, moves all extremities and no meningeal signs Speech: normal speech Gait exam (Neuro): Normal gait present Extrem: General: normal to inspection, full ROM and capillary refill normal Psych: Appearance: grossly normal and well kempt Course Course Emergency Course: Some parts of this dictation were generated by voice recognition software and may contain typographical and/or grammatical inaccuracies. Level of Care: Express Care Visit Vital Signs Vital signs: Vital Signs Temperature 36.3 C L 01/09/24 14:26 Pulse Rate 92 01/09/24 14:26 Respiratory Rate 20 01/09/24 14: Blood Pressure 131/85 01/09/24 14:26 Pulse Oximetry 97 01/09/24 14:26 Oxygen Delivery Room Air 01/09/24 14:26 Temperature 36.3 C L 01/09/24 14:26 Pulse Rate 92 01/09/24 14: Respiratory Rate 20 01/09/24 14:26 Blood Pressure 131/85 01/09/24 14:26 Pulse Oximetry 97 01/09/24 14:26 Oxygen Delivery Room Air 01/09/24 14:26 reviewed Medical Decision Making MDM Narrative Medical decision making narrative: 28-year-old male to Express Care with complaint of right ear fullness, stating it feels plugged up and scratchy throat for 2 days. Patient endorses history of chronic bilateral ear issues. States he is slated for surgery after the new year. Patient denies fever, shortness of breath, allergies. Patient able to tolerate fluids by mouth. Patient resting comfortably in exam room in no acute distress. Respirations even and nonlabored. Patient is sitting comfortably in exam room nontoxic in appearance. on exam, right EAC tenderness, erythematous. Right TM erythematous with fluid loss of landmarks. Consistent with right otitis media. Patient appropriate for outpatient treatment and follow-up. Discharge instructions reviewed with patient, as well as provided in writing per nursing staff. The instructions also include specific and strict return/GO TO THE ER as well as f/u information. All questions have been answered, and the patient deny any further questions with discharge and discharge plan. Some parts of this dictation were generated by voice recognition software and may contain typographical and/or grammatical inaccuracies. Differential Diagnosis Differential Diagnosis: Otitis media, otitis externa, foreign body ear, upper respiratory infection Vital Signs Vital Signs: Vital Signs Temperature 36.3 C L 01/09/24 14: Pulse Rate 92 01/09/24 14:26 Respiratory Rate 20 01/09/24 14:26 Blood Pressure 131/85 01/09/24 14:26 Pulse Oximetry 97 01/09/24 14:26 Oxygen Delivery Room Air 01/09/24 14:26 Temperature 36.3 C L 01/09/24 14: Pulse Rate 92 01/09/24 14: Respiratory Rate 20 01/09/24 14: Blood Pressure 131/85 01/09/24 14: Pulse Oximetry 97 01/09/24 14:26 Oxygen Delivery Room Air 01/09/24 14:26 Discharge Plan Discharge Clinical Impression: Acute right otitis media Patient Disposition: Home, Self-Care Condition: Stable Instructions: Ear Infection (GEN) Additional Instructions: -Alternate Tylenol and Motrin per package directions for fever or pain. -Antihistamine medication such as Benadryl at night and Zyrtec/Claritin/Hailee during the day can help improve symptoms. -Use Flonase twice a day for 5 days then daily to help reduce the inflammation and dry up your sinuses. -You can also use Sudafed or Mucinex. Be sure to drink plenty of water with these medications at least 8 ounces with every dose and it is important to drink 8 to 10 glasses of water per day. Water is a natural decongestant -Eat and drink things that are easy to swallow, like tea or soup, or popsicles. -Oral rinses such as: Salt water gargles and/or may use topical anesthetic (eg. Chloraseptic spray) or lozenges to relieve dryness or throat pain). -Frequent hand washing or hand engineering supervisor is one of the best ways to prevent spread of infection. -Using a vaporizer or humidifier at night will also help thin secretions and help with coughing up phlegm. -Follow up with primary care provider in 2-3 days if condition is not improving; or seek ER visit if you have trouble breathing, cannot drink enough fluids, have muffled voice, difficulty opening your mouth, or severe swelling. Prescriptions: New azithromycin 250 mg tablet 250 mg PO DAILY Qty: 6 0RF Rx Instructions: 250 mg orally. Take TWO tablets today, then one tablet daily for 4 days. prednisone 20 mg tablet 20 mg PO DAILY Qty: 5 0RF Rx Instructions: QAM Follow-up/Referrals: UNKNOWN,DOCTOR [Primary Care Provider] - Stand Alone Forms: Work/School Release IP
== END 2024-01-09 15:24 | disposition home or self-care (01) ==
PROVIDERS: Emergency Provider Nurse Practitioner Family
DX: H66.91 Otitis media, unspecified, right ear (principal); E11.9 Type 2 diabetes mellitus without complications; E78.00 Pure hypercholesterolemia, unspecified
CPT/HCPCS: 99213; G0463

== ENCOUNTER 2024-06-17 13:22 | Emergency (ER) | payer OTHER, SELFPAY ==
[2024-06-17 13:28] VITALS: BP 126/76; PULSE 91; RESP 20; TEMP 36.5; O2SAT 97
[2024-06-17 13:51] LABS: EDINFLUASCREEN Negative (Negative); EDINFLUBSCREEN Negative (Negative)
[2024-06-17 13:52] LABS: EDCOVIDSCREEN Negative (Negative); EDSTREPNEGPOS1 Negative (Negative)
--- OUTSIDE RECORDS SUMMARY | 2024-06-17 14:00 | XMS_ITS | Encounter Summary ---
Author Organization [facility] Address [address] [place] [address] Phone Care Team Providers Care Fiber Optic Assembly Worker Name Role Phone Nia Mack Primary Care Provider [phone] Arden Osorio MD [facility] Ashu claros Reason for Referral * Radiology Services (Emergency) - Closed Specialty Diagnoses / Procedures Referred By Contac t Referred To Contact Radiology Diagnoses Deep vein thrombosis (DVT) of calf muscle vein of left lower extremity, unspecified chronicity (HCC) Procedures US LEFT DUPLEX LOWER EXTREMITY VEINS Radha Awan APRN, HEALTH AND SAFETY TECHNICIAN [address] [place] [address] Phone: tel: fax: Referral ID Status Reason Start Date Expiration Date Visits Re quested Visits Authorized [id number] Closed 08/20/2022 1 1 Encounter Details Date Type Department Care Team (Late st Contact Info) Description 08/20/[address] [facility] Patient Access Admitting [address] [place] [address] Radha Awan APRN, HEALTH AND SAFETY TECHNICIAN [address] [place] [address] Deep vein thrombosis (DVT) of calf muscle vein of left lower extremity, unspecified chronicity (HCC) (Primary Dx) Social History Tobacco Use Types Packs/Day Years Used Date Smoking Tobacco: Never Alcohol Use Standard Drinks/Week Comments No 0 (1 standard drink = 0.6 oz pur e alcohol) Sex and Gender Information Value Date Recorded Sex Assigned at Not on file Legal Sex Male 11:07 PM CDT Gender Identity Not on file Sexual Orientation Not on file COVID-19 Exposure Response Date Recorded In the last 10 days, have yo u been in contact with someone who was confirmed or suspected to have Coronavirus/COVID-19? No / Unsure 08/19/2022 6:51 PM CDT documented as of this encounter Plan of Treatment Not on file documented as of this encounter Results * US LEFT DUPLEX LOWER EXTREMITY VEINS (08/20/2022 8:14 AM CDT) Anatomical Region Laterality Modality vascular Left Ultrasound 08/20/2022 8:30 AM CDT Impressions 08/20/2022 8:33 AM CDT IMPRESSION: No evidence of left lower extremity deep venous thrombosis. Mild enlargement of the greater saphenous vein 212 mm. Superficial venous varicosities in the calf, which appear patent. Narrative 08/20/2022 8:33 AM CDT EXAM DESCRIPTION: US LEFT DUPLEX LOWER EXTREMITY VEINS REASON FOR STUDY: Evaluate for deep vein thrombosis left calf pain and edema for 5 days, varicose veins noted on medial calf TECHNIQUE: Duplex scan using the B-mode, spectral Doppler, and color-flow Doppler of the deep venous system of the left lower extremity was performed. Images stored on PACS. COMPARISON: None available FINDINGS: The common femoral, common femoral-saphenous vein confluence, visualized profunda femoral, superficial femoral, and popliteal veins are readily compressible with no intraluminal thrombus on berg scale images. There is normal color and spectral Doppler signal, including augmentation. Greater saphenous vein appears patent, but is mildly enlarged at 12 mm in diameter. Visualized calf veins are patent. There are superficial venous varicosities in the calf, which appear patent THIS IS AN ELECTRONICALLY VERIFIED FINAL REPORT 08/20/2022 8:30 AM - Electronically signed by Toan Carver M.D. MZ: SARANYA Report ID: [id number] Reading Location: [id number] Procedure Note Toan Carver MD - 08/20/2022 EXAM DESCRIPTION: US LEFT DUPLEX LOWER EXTREMITY VEINS REASON FOR STUDY: Evaluate for deep vein thrombosis left calf pain and edema for 5 days, varicose veins noted on medial calf TECHNIQUE: Duplex scan using the B-mode, spectral Doppler, and color-flow Doppler of the deep venous system of the left lower extremity was performed. Images stored on PACS. COMPARISON: None available FINDINGS: The common femoral, common femoral-saphenous vein confluence, visualized profunda femoral, superficial femoral, and popliteal veins are readily compressible with no intraluminal thrombus on berg scale images. There is normal color and spectral Doppler signal, including augmentation. Greater saphenous vein appears patent, but is mildly enlarged at 12 mm in diameter. Visualized calf veins are patent. There are superficial venous varicosities in the calf, which appear patent THIS IS AN ELECTRONICALLY VERIFIED FINAL REPORT 08/20/2022 8:30 AM - Electronically signed by Toan Carver M.D. MZ: MZ Report ID: [id number] Reading Location: [place] [address] IMPRESSION: No evidence of left lower extremity deep venous thrombosis. Mild enlargement of the greater saphenous vein 212 mm. Superficial venous varicosities in the calf, which appear patent. Radha Awan APRN, HEALTH AND SAFETY TECHNICIAN IMG US ORDERABLES Fin al Result documented in this encounter Visit Diagnoses Diagnosis Deep vein thrombosis (DVT) of calf muscle vein of left lower extremity, unspecified chronicity (HCC)- Primary Deep vein thrombosis (DVT) of calf muscle vein of left lower extremity, unspecified chronicity (HCC) documented in this encounter Care Teams Fiber Optic Assembly Worker Relationship Specialty Start Date End Date Nia Mack PAC [address] [place], [place] [id number] PCP - General Physician Stippler 10/17/20 Arden Osorio MD [address] [place] [address] Consulting Physician Cardiovascular Disease - Cardiology 08/26/22 documented as of this encounter
--- OUTSIDE RECORDS SUMMARY | 2024-06-17 14:00 | XMS_ITS | Clinical Summary ---
Author Organization [facility] Address [address] [place] [address] Care Team Providers Care Rivet Hammer Machine Operator Name Role Phone Yusuf Hamilton MD Primary Care Provider Source Comments [facility],non-owned Affiliates and Associated Physician Practices is amultiple site organization consisting of ambulatory clinics and hospital sitesin [place], [place], [place] and [place]. This disclosure is being madepursuant to the Care Everywhere program and may not contain all information available regarding this patient. Last updated 17.[facility] Allergies No known active allergies Medications * Be aware that medications may not be up to date on this document. Alwaysverify current medications with the patient. naproxen (NAPROSYN) 500 MG tablet Take 1 Tab by mouth 2 times daily as needed for Pain 20 Tab 0 08/12/2014 Active hydrocodone-acet aminophen (NORCO) 5-325 MG tablet Take 1 Tab by mouth every 6 hours as needed for Pain 15 Tab 0 08/12/2014 Active diazepam (VALIUM) 5 MG tablet Take 1 Tab by mouth 2 times daily as needed for Spasms 10 Tab 0 08/12/2014 Active Social History Tobacco Use Types Packs/Day Years Used Date Smoking Tobacco: Never Assessed Sex and Gender Information Value Date Recorded Sex Assigned at Not on file Legal Sex Male 5:44 AM POT FILLER Gender Identity Not on file Sexual Orientation Not on file Last Filed Vital Signs Vital Sign Reading Time Taken Comments Blood Pressure 118/55 08/12/2014 2:21 PM CDT Pulse 72 07/11/2012 9:59 AM CDT Temperature 37.1 C (98.8 F) 08/27/2010 7:16 AM CDT Respiratory Rate 14 07/11/2012 9:59 AM CDT Oxygen Saturation 98% 08/12/2014 2:23 PM CDT Inhaled Oxygen Concentration - - Weight 133.8 kg (295 lb) 08/12/2014 1:18 PM CDT Height 177.8 cm (5' 10 ) 08/12/2014 1:18 PM CDT Body Mass Index 42.33 08/12/2014 1:18 PM CDT Plan of Treatment Health Maintenance Due Date Last Done Comments HIV SCREENING 2009 HEPATITIS C SCREENING 03/02/2012 DTAP/TDAP/TD VACCINES (1 - Tdap) 2013 HEPATITIS B VACCINE (1 of 3 - 19+ 3-dose series) 2013 COVID-19 VACCINE ( - 2023-2 5 season) 2023 DEPRESSION SCREENING 02/14/2024 INFLUENZA VACCINE (Season Ended) 2024 ZOSTER VACCINE (1 of 2) 2044 HIB VACCINE Aged Out No longer eligi ble based on patient's age to complete this topic HPV VACCINE Aged Out No longer eligi ble based on patient's age to complete this topic MENINGOCOCCAL (Group B) VACC INE SHARED DECISION-MAKING Aged Out No longer eligibl e based on patient's age to complete this topic MENINGOCOCCAL GROUPS A/C/Y/W VACCINE Aged Out No longer eligible b ased on patient's age to complete this topic PNEUMOCOCCAL VACCINE Aged Out No long er eligible based on patient's age to complete this topic Insurance [facility] [facility] Care Teams Rivet Hammer Machine Operator Relationship Specialty Start Date End Date Yusuf Hamilton MD PCP - General 11/05/20
--- OUTSIDE RECORDS SUMMARY | 2024-06-17 14:00 | XMS_ITS | Clinical Summary ---
Author Organization [facility] Address [address] [place] [address] Phone Care Team Providers Care Youth Career Specialist Name Role Phone Nia Mack Primary Care Provider [phone] Arden Osorio MD Unavailable Unavai lable Allergies No known active allergies Medications naproxen (NAPROSYN) 500 MG Tablet Take 1 Tab by mouth 2 times daily as needed for Pain. 20 Tab 0 015 Active Additional Information Patient not taking.Reported on 09/06/2022 acetaminophen (TYLENOL) 500 MG Tablet Take 500 mg by mouth. Active baclofen (LIORESAL) 10 MG Tablet TAKE 1 TABLET BY MOUTH THREE TIMES DAILY NEEDED FOR SPASM 023 Active Ibuprofen 200 MG Capsule Take 400 mg by mouth. Active Naproxen Sodium 220 MG Capsule Take by mouth. Acti ve traMADol (ULTRAM) 50 MG TabletIndications:P ain Take 1 Tablet by mouth every 8 hours as needed for Moderate or more severe pain. Indications: Pain 12 Tablet 024 Active famotidine (PEPCID) 20 MG TabletIndications:S ymptomatic Gastroesophageal Reflux Disease (Inactive) Take 1 Tablet by mouth every evening. Indications: Gastroesophageal Reflux Disease with Current Symptoms 30 Tablet 024 Active Active Problems Problem Noted Date Diagnosed Date Chronic bilateral low back pain with bilateral s ciatica 10/17/2017 Migraine without aura and wi thout status migrainosus, not intractable 03/12/2015 Social History Tobacco Use Types Packs/Day Years Used Date Smoking Tobacco: Never Tobacco Cessation:Counseling Given: Not Answered Alcohol Use Standard Drinks/Week Comments No 0 (1 standard drink = 0.6 oz pur e alcohol) Sex and Gender Information Value Date Recorded Sex Assigned at Not on file Legal Sex Male 11:07 PM CDT Gender Identity Not on file Sexual Orientation Not on file Last Filed Vital Signs Vital Sign Reading Time Taken Comments Blood Pressure 141/78 01/25/2024 1:00 PM LIMEROCK TOWER LOADER Pulse 71 01/25/2024 1:00 PM LIMEROCK TOWER LOADER Temperature 36.4 C (97.6 F) 01/25/2024 9:45 AM LIMEROCK TOWER LOADER Respiratory Rate 18 01/25/2024 1:00 PM LIMEROCK TOWER LOADER Oxygen Saturation 97% 01/25/2024 1:00 PM LIMEROCK TOWER LOADER Inhaled Oxygen Concentration - - Weight 136.1 kg (300 lb) 01/25/2024 9:45 AM LIMEROCK TOWER LOADER Height 180.3 cm (5' 11 ) 01/25/2024 9:45 AM LIMEROCK TOWER LOADER Body Mass Index 41.84 01/25/2024 9:45 AM LIMEROCK TOWER LOADER Plan of Treatment Health Maintenance Due Date Last Done Comments Hepatitis C Virus (HCV) Screening 1994 TdaP Immunization 1994 Hepatitis B Immunization (1 of 3 - 19+ 3-dose series) 2013 Pneumococcal Immunization Co mbined (1 of 2 - PCV) 2013 Influenza Immunization (#1) 2023 SARS-COV-2 Immunization ( - season) 2023 Respiratory Syncytial Virus (RSV) Immunization (Adult) (1 - 1-dose 75+ series) 2069 Meningococcal Immunization (ACWY) Aged Out No longer eligible based on patient's age to complete this topic Rotavirus Immunization Aged Out No lo nger eligible based on patient's age to complete this topic Insurance [employer] Care Teams Youth Career Specialist Relationship Specialty Start Date End Date Nia Mack PAC [address] [place] [id number] PCP - General Physician Sewage Plant Operator 10/17/20 Arden Osorio MD [address] [place] [id number] Consulting Physician Cardiovascular Disease - Cardiology 08/26/22
--- NOTE | 2024-06-17 14:07 | ED.EAR ---
HPI - Ear Problem General Chief complaint: Ear Stated complaint: Cough/Ear Pain/Sore Throat Source: patient Mode of arrival: ambulatory Limitations: no limitations History of Present Illness HPI Narrative: 29 y/o male presented for c/o nasal congestion, cough, sore throat, and bilateral ear pressure. Onset 3 days. denies sob, wheezing, n/v/d/f/c. Taking Mucinex. Complaint: ear pain Related Data Allergies Allergy/AdvReac Type Severity Reaction Status Date / Time No Known Allergies Allergy Verified 06/17/24 13:33 Review of Systems Review of Systems: CONSTITUTIONAL: Denies malaise, chills, or fever. EYES: Denies visual changes, redness, or discharge. ENT: Reports ear pain, rhinorrhea, congestion CARDIOVASCULAR: Denies chest pain, palpitations, or edema. RESPIRATORY: Denies cough or dyspnea. GASTROINTESTINAL: Denies abdominal pain, nausea, vomiting, diarrhea SKIN: Denies rash or itching. MUSCULOSKELETAL: Denies myalgia. NEUROLOGIC: Denies headache. 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 There is no relevant family history pertinent to the presenting complaint Exam Narrative: GENERAL: Well-appearing HEAD: Normocephalic EYES: PERRLA, conjunctivae clear ENT: Nasal congestion noted. Mucous membranes moist. Bilateral TMs erythematous, bulging and intact; canal not erythematous, no drainage, no tragal tenderness. Oropharynx not erythematous without lesions. no drooling, no hoarseness, no trismus, uvula midline. NECK: Supple. No lymphadenopathy CHEST: Clear to auscultation, breath sounds equal. No wheezing, rhonchi, rales, or stridor. No respiratory distress, speaks in full sentences. HEART: Regular rate and rhythm. No murmur heard. SKIN: Warm, dry, no rash. NEURO: Alert and oriented x3. PSYCH: Normal mood and affect Course Course Emergency Course: Patient is aware of diagnosis, understands and agrees to treatment plan. Anticipatory guidance given. Patient agrees to follow-up as directed and is aware of reasons to seek care at the emergency department. Portions of this record may have been created with voice recognition software Level of Care: Express Care Visit Vital Signs Vital signs: Vital Signs Temperature 97.7 F 06/17/24 13:28 Pulse Rate 91 06/17/24 13:28 Respiratory Rate 20 06/17/24 13:28 Blood Pressure 126/76 06/17/24 13:28 Pulse Oximetry 97 06/17/24 13:28 Oxygen Delivery Room Air 06/17/24 13:28 Temperature 97.7 F 06/17/24 13:28 Pulse Rate 91 06/17/24 13:28 Respiratory Rate 20 06/17/24 13:28 Blood Pressure 126/76 06/17/24 13:28 Pulse Oximetry 97 06/17/24 13:28 Oxygen Delivery Room Air 06/17/24 13:28 Reviewed Medical Decision Making MDM Narrative Medical decision making narrative: Discussed physical exam findings consistent with bilateral AOM. Advised supportive measures and signs/symptoms to go to the ER. Patient is appropriate for outpatient treatment and follow-up. Differential Diagnosis Differential Diagnosis: Coronavirus, strep pharyngitis, allergic rhinitis, upper respiratory tract infection, sinusitis, rhinosinusitis, nasopharyngitis, viral pharyngitis, otitis media, otitis externa, eustachian tube dysfunction, foreign body, cerumen impaction. Vital Signs Vital Signs: Vital Signs Temperature 97.7 F 06/17/24 13:28 Pulse Rate 91 06/17/24 13:28 Respiratory Rate 20 06/17/24 13:28 Blood Pressure 126/76 06/17/24 13:28 Pulse Oximetry 97 06/17/24 13:28 Oxygen Delivery Room Air 06/17/24 13:28 Temperature 97.7 F 06/17/24 13:28 Pulse Rate 91 06/17/24 13:28 Respiratory Rate 20 06/17/24 13:28 Blood Pressure 126/76 06/17/24 13:28 Pulse Oximetry 97 06/17/24 13:28 Oxygen Delivery Room Air 06/17/24 13:28 Lab Data Labs: Lab Results 06/17/24 Range/Units 13:32 POC Influenza A Ag Negative (Negative) POC Influenza B Ag Negative (Negative) POC SARS CoV-2 Ag Negative (Negative) POC Grp A Strep Screen Negative (Negative) Discharge Plan Discharge Clinical Impression: Otitis media Patient Disposition: Home Condition: Stable Instructions: Antibiotic Form, Ear Infection (ED) Additional Instructions: Flu and COVID negative. Rapid strep swab was negative today You will be notified in a few days if the culture comes back positive for strep, and appropriate antibiotics will be called in at that time. if symptoms are due to a viral illness, it is not treated with antibiotics. Viral symptoms can be present for up to 10-14 days. Recommendations: Flonase spray and Zyrtec for sinus congestion Cough syrup may cause drowsiness; avoid driving or take it at night time. Tylenol every 8 hours as needed for pain/fever Soft foods, cool liquids, warm tea. Gargle with warm saltwater twice a day. Chloraseptic spray and throat lozenges. Rest and stay hydrated. Please schedule a follow-up visit with your personal physician If your symptoms persist, change or worsen significantly, go to the emergency department for further evaluation. Patient Language: Divehi Prescriptions: New amoxicillin-pot clavulanate 875-125 mg tablet 1 tablet PO Q12H 7 Days Qty: 14 0RF Follow-up/Referrals: UNKNOWN,DOCTOR [Primary Care Provider] - Stand Alone Forms: Work/School Release IP Time of Disposition: 14:14
== END 2024-06-17 14:21 | disposition home or self-care (01) ==
PROVIDERS: Emergency Provider Nurse Practitioner Family
DX: H66.90 Otitis media, unspecified, unspecified ear (principal); E11.9 Type 2 diabetes mellitus without complications; Z20.822 Contact with and (suspected) exposure to COVID-19
CPT/HCPCS: 87081; 87426; 87804; 87880; 99213; G0463